=== PATIENT | female | born 2000 | race Two or more races ===

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

== ENCOUNTER 2021-10-04 17:40 | Emergency (ER) | payer MEDICAID ==
[~2021-10-04] VITALS: Ht 154.9 cm; Wt 90.7 kg
[2021-10-04] MEDS ORDERED: GUAI600T23 PO (20:12)
[2021-10-04] MEDS ORDERED: IBUP800T27 PO (20:12)
[2021-10-04] MEDS ORDERED: ALBUAER3 IN (20:12)
[2021-10-05 03:09] VITALS: BP 120/77
== END 2021-10-05 03:15 | disposition home or self-care (01) ==
LOC: ER 17:41
DX: U07.1 COVID-19 (principal); E66.9 Obesity, unspecified; Z68.37 Body mass index [BMI] 37.0-37.9, adult
CPT/HCPCS: 36415; 87426

== ENCOUNTER 2023-09-07 09:23 | Emergency (ER) | payer MEDICAID ==
[~2023-09-07] VITALS: Ht 162.6 cm; Wt 107.1 kg
[~2023-09-07 09:23] MED LIST: ALBUAER3 IN; GUAI600T23 PO; IBUP-1456 PO
[2023-09-07 10:03] VITALS: BP 144/83; TEMP 98.4
[2023-09-07] MEDS ORDERED: cefTRIAXone SOD 1,000 MG VL IM ONE (11:00)
[2023-09-07] MEDS ORDERED: cefTRIAXone SOD 1,000 MG VL ONE (11:10)
[2023-09-07] MEDS ORDERED: AZIT500T66 PO (11:23)
[2023-09-07] MEDS ORDERED: PROM1SOL4 PO (11:23)
[2023-09-07 11:31] VITALS: PULSE 98; RESP 18; O2SAT 99
== END 2023-09-07 11:32 | disposition home or self-care (01) ==
LOC: ER 09:23
DX: J20.9 Acute bronchitis, unspecified (principal); J03.90 Acute tonsillitis, unspecified
CPT/HCPCS: 71045; 81025; 96372; 99283; J0696

== ENCOUNTER 2023-10-14 14:03 | Emergency (ER) | payer MEDICAID ==
[~2023-10-14] VITALS: Ht 157.5 cm; Wt 106.0 kg
[~2023-10-14 14:03] MED LIST changes: +AZIT500T66 PO; +PROM1SOL4 PO
[2023-10-14 14:57] VITALS: BP 148/81; PULSE 119; RESP 18; TEMP 98; O2SAT 95
[2023-10-14] MEDS ORDERED: BENZ100C97 PO (17:02)
[2023-10-14] MEDS ORDERED: AZIT-81 PO (17:02)
== END 2023-10-14 17:11 | disposition home or self-care (01) ==
LOC: ER 14:03
DX: J20.9 Acute bronchitis, unspecified (principal)
CPT/HCPCS: 71045

== ENCOUNTER 2024-09-09 05:19 | Emergency (ER) | payer MEDICAID ==
[~2024-09-09] VITALS: Ht 157.5 cm; Wt 103.9 kg
[~2024-09-09 05:19] MED LIST changes: +AZIT-185 PO; +AZITTAB PO; +BENZ100C97 PO; +BENZ200C64 PO; -GUAI600T23 PO; +GUAI600T78 PO; +PRED20TA2 PO
[2024-09-09 05:52] VITALS: BP 111/84; PULSE 109; RESP 18; O2SAT 94
== END 2024-09-09 08:44 | disposition left against medical advice (07) ==
LOC: ER 05:19
DX: R05.9 Cough, unspecified (principal); Z53.21 Procedure and treatment not carried out due to patient leaving prior to being seen by health care provider

== ENCOUNTER 2025-01-02 18:38 | Emergency (ER) | payer MEDICAID ==
[~2025-01-02] VITALS: Ht 157.5 cm; Wt 110.1 kg
[2025-01-02 19:30] VITALS: BP 145/94; PULSE 104; RESP 19; TEMP 98.6; O2SAT 96
[2025-01-02] MEDS ORDERED: CLOTCRE3 EX (19:35)
[2025-01-02] MEDS ORDERED: COROSUS LEFT EAR (19:35)
--- NOTE | 2025-01-02 19:35 | ED.PDOC ---
Eye-HPI HPI Comments This is a 24-year-old female presents to the ED chief complaint ear pain x1 week. Patient notes bilateral ear pain left greater than right she states pressure denies any hearing changes. Reports itchy dry rash behind both ears. Denies fevers, chills, nausea, vomiting, difficulty in hearing, change in hearing, chest pain, shortness breath, or abdominal pain Chief Complaint: Earache Time Seen by MD: 18:42 Primary Care Provider: UNKNOWN Allergies: Coded Allergies: NO KNOWN ALLERGIES (Unverified , 04/01/14) Home Meds Active Scripts Knwjvmzg-Pgskxlnyj-Ib (Otic) (Cortisporin Otic Susp) [address], 4 DROP LEFT EAR TID for 6 Days, #3 ML Prov:TIFFANIE NOVOA LOAN ANALYST 01/02/25 Clotrimazole W/ Betamethasone (Clotrimazole/Betamethason 1-0.05 %) 1 Cre Cre, 1 APPLIC EX BID for 7 Days, #15 GRAMS Prov:TIFFANIE NOVOA LOAN ANALYST 01/02/25 Benzonatate (Benzonatate) 200 Mg Cap, 1 CAP PO TID, #30 CAP as needed for cough Prov:MARKUS RECINOS Q OIL TANK CAR CLEANER 12/06/23 Albuterol Sulfate (VENTOLIN MDI) 90 Mcg Ih, 1 PUFF IN Q4HPRN PRN, #1 INH Shortness of breath wheezing cough Prov:BIJAN RECINOSA Q [employer] 12/06/23 Prednisone (Prednisone) 20 Mg Tab, 1 TAB PO DAILY for 5 Days, #5 TAB start tomorrow with food Prov:MARKUS RECINOS Q [employer] 12/06/23 Azithromycin (Zithromax Z-Nico) 250 Mg Tab, 1 TAB PO DAILY for 5 Days, #6 TAB Prov:BIJAN RECINOSA Q [employer]IL [employer] 12/06/23 Benzonatate (Benzonatate) 100 Mg Cap, 100 MG PO TID for 10 Days, #30 CAP 0 Refills Prov:MANJINDER MELGOZA [employer] 10/14/23 Azithromycin (ZITHROMAX TABLET) 250 Mg Tb, 250 MG PO DAILY for 5 Days, #6 TAB 0 Refills Take 2 tablets on day 1 then 1 tablet daily Prov:MANJINDER MELGOZA [employer]ER 10/14/23 Promethazine-Dm (Promethazine Dm 6.25-15 mg/5Ml) 1 Hillary Hillary, 5 ML PO TID, #180 ML Prov:MOLINA DE SANTIAGO 09/07/23 Azithromycin (Azithromycin) 500 Mg Tab, 1 TAB PO DAILY, #5 TAB Prov:MOLINA DE SANTIAGO 09/07/23 Albuterol Sulfate (VENTOLIN MDI) 90 Mcg Ih, 90 MCG IN QID, #1 INH 0 Refills Prov:JAZLYN JOHNSTON 10/04/21 Guaifenesin (Mucinex) 600 Mg Tab, 1 TAB PO BID for 7 Days, #14 TAB 0 Refills Prov:JAZLYN JOHNSTON 10/04/21 Ibuprofen (Ibuprofen) 800 Mg Tab, 1 TAB PO TID, #30 TAB 0 Refills Prov:JAZLYN JOHNSTON 10/04/21 Mode of Arrival: Ambulatory Past Medical History PAST MEDICAL HISTORY: Denies Surgical History: Denies all surgeries PRE SCHOOL MANAGER History: No Pertinent PRE SCHOOL MANAGER History Family History Family History: Reviewed,noncontributory to illness Social History Smoker: Non-Smoker Alcohol: Denies ETOH Use Drugs: Denies Drug Use Lives In: Home Constitutional: denies: chills, diaphoresis, fatigue, fever, malaise, sweats, weakness, others EENTM: reports: ear pain; denies: blurred vision, double vision, ear bleeding, ear discharge, ear drainage, ear ringing, eye pain, eye redness, hearing loss, mouth pain, mouth swelling, nasal discharge, nose bleeding, nose congestion, nose pain, photophobia, tearing, throat pain, throat swelling, voice changes, others Respiratory: denies: cough, hemoptysis, orthopnea, SOB at rest, shortness of breath, SOB with excertion, stridor, wheezing, others Cardiovascular: denies: chest pain, dizzy spells, diaphoresis, Dyspnea on exertion, edema, irregular heart beat, left arm pain, lightheadedness, palpitations, PND, syncope, others Gastrointestinal: denies: abdomen distended, abdominal pain, blood streaked bowels, constipated, diarrhea, dysphagia, difficulty swallowing, hematemesis, melena, nausea, poor appetite, poor fluid intake, rectal bleeding, rectal pain, vomiting, others Genitourinary: denies: abnormal vagina bleeding, burning, dyspareunia, dysuria, flank pain, frequency, hematuria, incontinence, pain, , vagina discharge, urgency, others Neurological: denies: dizziness, fainting, headache, left sided numbness, left sided weakness, numbness, paresthesia, pre-existing deficit, right sided numbness, right sided weakness, seizure, speech problems, tingling, tremors, weakness, others Musculoskeletal: denies: back pain, gout, joint pain, joint swelling, muscle pain, muscle stiffness, neck pain, others Integumetry: denies: bruises, change in color, change in hair/nails, dryness, laceration, lesions, lumps, rash, wounds, others Allergic/Immunocompromised: denies: Difficulty Healing, Frequent Infections, Hives, Itching, others Hematologic/Lymphatic: denies: anemia, blood clots, easy bleeding, easy bruising, swollen glands, others Endocrine: denies: excessive hunger, excessive sweating, excessive thirst, excessive urination, flushing, intolerance to cold, intolerance to heat, unexplained weight gain, unexplained weight loss, others Psychiatric: denies: anxiety, bipolar disorder, depression, hopeless, panic disorder, schizophrenia, sleepless, suicidal, others Physical Exam General Appearance: No Apparent Distress, Normal HEENT: Pharynx Normal, TMs Normal, Other (Left ear canal noted erythemic and edematous no noted drainage bilateral TMs intact without erythema or edema.) Neck: Full Range of Motion, Non-Tender, Normal, Normal Inspection Respiratory: Chest Non-Tender, Lungs Clear, No Accessory Muscle Use, No Respiratory Distress, Normal Breath Sounds Cardiovascular: No Edema, No JVD, No Murmur, No Gallop, Normal Peripheral Pulses, Regular Rate/Rhythm Breast Exam: Deferred Gastrointestinal: No Organomegaly, Non Tender, No Pulsatile Mass, Normal Bowel Sounds, Soft Genitalia: Deferred Pelvic: Deferred Rectal: Deferred Extremities: No calf tenderness, Normal capillary refill, Normal inspection, Normal range of motion, Non-tender, No pedal edema Musculoskeletal : Apperance: Normal Neurologic: Alert, wrapper leaf inspector II-XII nml as Tested, No Motor Deficits, Normal Affect, Normal Mood, No Sensory Deficits Cerebellar Function: Normal Reflexes: Normal Skin: Dry, Normal Color, Rash (Scaly rash noted behind bilateral ears trace erythema no excoriations or open lesions or drainage.), Warm Lymphatic: No Adenopathy Was a procedure done? Was a procedure done?: No EENT DIFF Eye: N/A Ear: Abrasion, Cerumen Impaction, Foreign Body, Otitis Externa, Barotrauma, Otitis Media, Perforation, Sinusitis X-Ray, Labs, Meds, VS Vital Signs Date Time Temp Pulse Resp B/P (MAP) Pulse Ox O2 Delivery O2 Flow Rate FiO2 01/02/25 19:30 104 19 96 Room Air 01/02/25 19:30 98.6 104 19 145/94 (111) 96 98.6 01/02/25 18:48 98.5 111 18 145/93 (110) 96 98.5 X-Ray, Labs, Meds, VS Comment Otitis externa in the left ear script Cortisporin advised to take medications as prescribed side effects discussed. Likely tinea behind bilateral ears script clotrimazole/betamethasone. Advised to follow up with her PCP in 1-2 days. ER return precautions given patient indicates understanding and agrees with discharge plan of care. Time of 1ST Reevaluation: 19:32 Reevaluation 1ST: Unchanged Patient Education/Counseling: Diagnosis, Treatment, Prognosis, Need For Follow Up Family Education/Counseling: No Family Present Departure 1 Departure Time of Disposition: 19:32 Impression: Primary Impression: Otitis externa Qualified Codes: H60.502 - Unspecified acute noninfective otitis externa, left ear Additional Impression: Tinea Disposition: HOME / SELF CARE / HOMELESS Condition: Stable e-Prescriptions Enbfodav-Yktewkqsg-Rg (Otic) (Cortisporin Otic Susp) [address] 4 DROP LEFT EAR TID for 6 Days, #3 ML Prov: TIFFANIE NOVOA 01/02/25 Clotrimazole W/ Betamethasone (Clotrimazole/Betamethason 1-0.05 %) 1 Cre Cre 1 APPLIC EX BID for 7 Days, #15 GRAMS Prov: TIFFANIE NOVOA 01/02/25 Discharged With: Self Critical Care Note Critical Care Time?: No Stability Stability form required: TIFFANIE Sexton Jan 02, 2025 19:35
== END 2025-01-02 19:55 | disposition home or self-care (01) ==
LOC: ER 18:38
DX: H60.90 Unspecified otitis externa, unspecified ear (principal); B35.9 Dermatophytosis, unspecified; Z79.1 Long term (current) use of non-steroidal anti-inflammatories (NSAID); Z79.52 Long term (current) use of systemic steroids